=== PATIENT | female | born 1975 | race Caucasian/White ===

== ENCOUNTER 2019-04-27 01:49 | Emergency (ER) | payer OTHER ==
[~2019-04-27] VITALS: Ht 162.6 cm; Wt 63.5 kg
[2019-04-27] MEDS ORDERED: VOLTAREN GEL 1100 G1 TOP (01:58)
[2019-04-27] MEDS ORDERED: DICLOFENAC SODIUM PO (01:59)
[2019-04-27] MEDS ORDERED: TRAMADOL 50 MG50 MG PO (02:00)
[2019-04-27 02:59] LABS: ABSOLUTE LYMPHOCYTES 1.8 thou/uL (0.8-5.3); ABSOLUTE MONOCYTES 0.8 thou/uL (0.0-1.2); ABSOLUTE NEUTROPHILS 11.3 thou/uL (1.6-8.1); BASOPHILS 0.3 %; EOSINOPHILS 0.2 %; HEMATOCRIT 37.2 % (37.0-47.0); HEMOGLOBIN 12.9 gm/dL (12.0-15.0); LYMPHOCYTES 13.2 %; MCH 32.9 pg (26.0-34.0); MCHC 34.6 g/dL (28.0-37.0); MONOCYTES 5.5 %; MPV 8.3 fl. (7.2-11.1); NUCLEATED RBCS 0 /100WBC; PLATELET COUNT* 246 thou/uL (150-400); POLYS 80.8 %; RBC 3.91 mil/uL (4.20-5.00)
[2019-04-27 03:04] LABS: CALCIUM 8.6 mg/dL (8.5-10.1); CREATININE 0.9 mg/dL (0.6-1.3); POTASSIUM 4.6 mmol/L (3.5-5.1)
[2019-04-27 03:09] LABS: ALBUMIN 3.6 g/dL (3.4-5.0); TOTAL BILIRUBIN 0.4 mg/dL (<0.1-1.0); TOTAL PROTEIN 7.3 g/dL (6.4-8.2)
[2019-04-27 03:23] LABS: URINE BILIRUBIN NEGATIVE (Negative); URINE BLOOD TRACE (Negative); URINE CLARITY CLEAR; URINE COLOR YELLOW; URINE GLUCOSE-RANDOM NEGATIVE (Negative); URINE KETONES NEGATIVE (Negative); URINE LEUKOCYTES-REFLEX 1+ (Negative); URINE PROTEIN NEGATIVE (Negative); URINE UROBILINOGEN 0.2 E.U./dl (0.2-1.0)
[2019-04-27 03:24] LABS: URINE NITRITE-REFLEX POSITIVE (Negative)
[2019-04-27 03:58] LABS: CASTS None Seen /LPF (None Seen); SQUAMOUS >10 Many /LPF (0-3)
[2019-04-27 03:59] LABS: BACTERIA-REFLEX >30 Many /HPF (None Seen); CRYSTALS None Seen /LPF (None Seen); URINE RBC 0-2 Rare /HPF (0-2); URINE WBC-REFLEX 6-15 Few /HPF (0-5)
[2019-04-27] MEDS ORDERED: IBUPROFEN 800800 MG PO (05:03)
[2019-04-27] MEDS ORDERED: LEVAQUIN 500 M500 M3 PO (05:03)
[2019-04-27] MEDS ORDERED: NORCO 5-325 TA1 EAC1 PO (08:57)
[2019-04-27 09:02] VITALS: BP 126/68
== END 2019-04-27 09:03 | disposition home or self-care (01) ==
LOC: M.ERS 01:49
PROVIDERS: Personal Emergency Response Attendant
DX: N39.0 Urinary tract infection, site not specified (principal); R19.00 Intra-abdominal and pelvic swelling, mass and lump, unspecified site